=== PATIENT | male | born 1955 | race American Indian/Alaskan Native ===

== ENCOUNTER 2020-09-12 13:18 | Emergency (ER) | payer OTHER ==
[2020-09-12] MEDS ORDERED: HYDROcodone/ACETAMINOPHEN 5-325 MG TAB PO ONE (15:28)
[2020-09-12] MEDS ORDERED: dexAMETHasone 4 MG/ML VIAL IM ONE (15:28)
[2020-09-12] MEDS ORDERED: cloNIDine 0.1 MG TAB PO ONE (15:28)
--- NOTE | 2020-09-12 16:00 | XRay Report ---
XR foot 3+V RT INDICATION / CLINICAL INFORMATION: right foot pain and swelling. COMPARISON: None available. FINDINGS: BONES/JOINT(S): No acute fracture or subluxation. No significant degenerative changes. SOFT TISSUES: No significant abnormality. ADDITIONAL FINDINGS: None. Signer Name: Bryon Monzon MD Signed: 09/12/2020 3:56 PM Workstation Name: [id number]
--- NOTE | 2020-09-12 16:48 | Emergency Department Report ---
ED Extremity Problem HPI - General Chief complaint: Extremity Problem,Nontraumatic Stated complaint: GOUT/HBP Time Seen by Provider: 09/12/20 15:18 Source: patient Mode of arrival: Ambulatory Limitations: No Limitations - History of Present Illness Initial comments: Patient is a 65-year-old male presents emergency room complaints of right foot pain and swelling that began a week ago. He denies any fall or injury. He states that this happened once in the past approximately 2 years ago he was diagnosed with gout. He states that he saw Dr. Evangelista, podiatry at that time. He denies any red meat, beer, wine use. He states that he does eat cheese. He denies any numbness or weakness. He states he has pain with ambulation. Past medical history of hypertension, he states that he was previously on amlodipine 10 years ago but has not been on it since then. He denies any symptoms related to his blood pressure. He denies any medication allergies. Severity scale (0 -10): 4 - Related Data Previous Rx's Medication Instructions Recorded Last Taken Type Colchicine 0.6 mg PO ONCE 1 Days #3 tablet 09/12/20 Unknown Rx Prednisone [predniSONE 10 mg 10 mg PO .TAPER #1 tab.ds.pk 09/12/20 Unknown Rx (6-Day Pack, 21 Tabs)] amLODIPine 10 mg PO DAILY #30 tab 09/12/20 Unknown Rx traMADoL [Ultram 50 MG tab] 50 mg PO Q6HR PRN #12 tablet 09/12/20 Unknown Rx ED Review of Systems ROS: Stated complaint: GOUT/HBP Other details as noted in HPI Comment: All other systems reviewed and negative ED Past Medical Hx - Past Medical History Previous Medical History?: Yes Hx Hypertension: Yes Additional medical history: gout - Surgical History Past Surgical History?: No - Medications Home Medications: Home Medications Medication Instructions Recorded Confirmed Last Taken Type Colchicine 0.6 mg PO ONCE 1 Days #3 tablet 09/12/20 Unknown Rx Prednisone [predniSONE 10 mg 10 mg PO .TAPER #1 tab.ds.pk 09/12/20 Unknown Rx (6-Day Pack, 21 Tabs)] amLODIPine 10 mg PO DAILY #30 tab 09/12/20 Unknown Rx traMADoL [Ultram 50 MG tab] 50 mg PO Q6HR PRN #12 tablet 09/12/20 Unknown Rx ED Physical Exam - General Limitations: No Limitations General appearance: alert, in no apparent distress - Head Head exam: Present: atraumatic, normocephalic - Eye Eye exam: Present: normal appearance - ENT ENT exam: Present: mucous membranes moist - Respiratory Respiratory exam: Absent: respiratory distress, accessory muscle use - Extremities Exam Extremities exam: Present: other (ttp to the right dorsal foot, mild increased warmth, edema and erythema, FROM of the RLE, no significant pain with ROM, no deformity, skin is intact, neurovascularly intact) - Neurological Exam Neurological exam: Present: alert, oriented X3 - Psychiatric Psychiatric exam: Present: normal affect, normal mood - Skin Skin exam: Present: warm, dry, intact ED Course Vital Signs 09/12/20 09/12/20 09/12/20 14:53 16:11 17:21 Temperature 98.1 F Pulse Rate 50 L 82 Respiratory 20 20 Rate Blood Pressure 203/106 172/94 O2 Sat by Pulse 95 96 Oximetry ED Medical Decision Making - Lab Data Result diagrams: 09/12/20 16:36 09/12/20 16:36 Lab Results 09/12/20 09/12/20 Range/Units 16:36 16:36 WBC 9.5 (4.5-11.0) K/mm3 RBC 4.95 (3.65-5.03) M/mm3 Hgb 13.7 (11.8-15.2) gm/dl Hct 41.5 (35.5-45.6) % MCV 84 (84-94) fl MCH 28 (28-32) pg MCHC 33 (32-34) % RDW 13.5 (13.2-15.2) % Plt Count 315 (140-440) K/mm3 Lymph % (Auto) 6.5 L (13.4-35.0) % Rhea % (Auto) 8.8 H (0.0-7.3) % Eos % (Auto) 1.1 (0.0-4.3) % Baso % (Auto) 0.6 (0.0-1.8) % Lymph # (Auto) 0.6 L (1.2-5.4) K/mm3 Rhea # (Auto) 0.8 (0.0-0.8) K/mm3 Eos # (Auto) 0.1 (0.0-0.4) K/mm3 Baso # (Auto) 0.1 (0.0-0.1) K/mm3 Seg Neutrophils % 83.0 H (40.0-70.0) % Seg Neutrophils # 7.9 H (1.8-7.7) K/mm3 Sodium 137 (137-145) mmol/L Potassium 3.1 L (3.6-5.0) mmol/L Chloride 93.7 L (98-107) mmol/L Carbon Dioxide 32 H (22-30) mmol/L Anion Gap 14 mmol/L BUN 21 H (9-20) mg/dL Creatinine 1.5 H (0.8-1.3) mg/dL Estimated GFR 57 ml/min BUN/Creatinine Ratio 14 % Glucose 128 H (75-100) mg/dL Uric Acid 9.4 H (3.5-7.6) mg/dL Calcium 8.9 (8.4-10.2) mg/dL Total Bilirubin 0.70 (0.1-1.2) mg/dL AST 26 (5-40) units/L ALT 20 (7-56) units/L Alkaline Phosphatase 57 (35-129) units/L Total Protein 8.3 H (6.3-8.2) g/dL Albumin 3.3 L (3.9-5) g/dL Albumin/Globulin Ratio 0.7 % Vital Signs 09/12/20 09/12/20 09/12/20 14:53 16:11 17:21 Temperature 98.1 F Pulse Rate 50 L 82 Respiratory 20 20 Rate Blood Pressure 203/106 172/94 O2 Sat by Pulse 95 96 Oximetry - Radiology Data Radiology results: report reviewed Ordering Physician: ALVERTO FINNEGAN Date of Service: 09/12/20 Procedure(s): XR foot 3+V RT Accession Number(s): [id number] cc: ALVERTO FINNEGAN Fluoro Time In Minutes: XR foot 3+V RT INDICATION / CLINICAL INFORMATION: right foot pain and swelling. COMPARISON: None available. FINDINGS: BONES/JOINT(S): No acute fracture or subluxation. No significant degenerative changes. SOFT TISSUES: No significant abnormality. ADDITIONAL FINDINGS: None. Signer Name: Bryon Monzon MD Signed: 09/12/2020 3:56 PM Workstation Name: [id number] Transcribed By: MARIBELL Dictated By: Bryon Monzon MD Electronically Authenticated By: Bryon Monzon MD Signed Date/Time: 09/12/201555 DD/ 54 TD/TT: Print - Medical Decision Making Patient is a 65-year-old male presents emergency room complaints of right foot pain and swelling that began a week ago. He denies any fall or injury. He states that this happened once in the past approximately 2 years ago he was diagnosed with gout. He states that he saw Dr. Evangelista, podiatry at that time. He denies any red meat, beer, wine use. He states that he does eat cheese. He denies any numbness or weakness. He states he has pain with ambulation. Past medical history of hypertension, he states that he was previously on amlodipine 10 years ago but has not been on it since then. He denies any symptoms related to his blood pressure. He denies any medication allergies. Vitals with elevated blood pressure, otherwise vitals are stable, patient given 0.1 mg of clonidine and blood pressure improved. On exam:ttp to the right dorsal foot, mild increased warmth, edema and erythema, FROM of the RLE, no significant pain with ROM, no deformity, skin is intact, neurovascularly intact. XR right foot: BONES/JOINT(S): No acute fracture or subluxation. No significant degenerative changes. SOFT TISSUES: No significant abnormality. ADDITIONAL FINDINGS: None. Uric acid is elevated, symptoms are most consistent with gout. No leukocytosis. Patient does have some renal insufficiency, could be secondary to blood pressure, discussed the importance of primary care follow- up. Labs show hypokalemia, repleted with K-Dur. Discussed all results with patient answered questions. Patient given pain medication and dexamethasone IM while in the emergency department as he did not drive and symptoms significantly improved. Patient given prescription for colchicine, prednisone, tramadol, amlodipine. Advised patient Please take medication as prescribed. Increase your water intake. Eat a low-sodium/low salt diet. follow the diet for gout. Follow-up with your primary care doctor and please discuss today's findings with your primary care doctor. Keep a blood pressure log and take this to the primary care doctor. Incorporate 30 to 60 minutes of daily exercise. Return to emergency room for new or worsening symptoms. Critical care attestation.: If time is entered above; I have spent that time in minutes in the direct care of this critically ill patient, excluding procedure time. ED Disposition Clinical Impression: Hypertensive urgency, Renal insufficiency, Hypokalemia Acute gout Qualifiers: Gout site: foot Gout etiology: unspecified cause Laterality: right Qualified Code(s): M10.9 - Gout, unspecified Disposition: DC-01 TO HOME OR SELFCARE Is pt being admited?: No Does the pt Need Aspirin: No Condition: Stable Instructions: Low-Purine Eating Plan, Low-Sodium Eating Plan, Managing Your Hypertension Additional Instructions: Please take medication as prescribed. Increase your water intake. Eat a low- sodium/low salt diet. follow the diet for gout. Follow-up with your primary care doctor and please discuss today's findings with your primary care doctor. Keep a blood pressure log and take this to the primary care doctor. Incorporate 30 to 60 minutes of daily exercise. Return to emergency room for new or worsening symptoms. Prescriptions: amLODIPine 10 mg PO DAILY #30 tab Colchicine 0.6 mg PO ONCE 1 Days #3 tablet Prednisone [predniSONE 10 mg (6-Day Pack, 21 Tabs)] 10 mg PO .TAPER #1 tab.ds.pk traMADoL [Ultram 50 MG tab] 50 mg PO Q6HR PRN #12 tablet PRN Reason: Pain , Severe (7-10) Referrals: PRIMARY CARE, [Primary Care Provider] - 2-3 Days Time of Disposition: 18:06 Print Language: SPANISH
[2020-09-12 16:57] LABS: Basophils # (Auto) 0.1 K/mm3 (0.0-0.1); Basophils % (Auto) 0.6 % (0.0-1.8); Eosinophils # (Auto) 0.1 K/mm3 (0.0-0.4); Eosinophils % (Auto) 1.1 % (0.0-4.3); Hematocrit 41.5 % (35.5-45.6); Hemoglobin 13.7 gm/dl (11.8-15.2); Lymphocytes # (Auto) 0.6 K/mm3 (1.2-5.4); Lymphocytes % (Auto) 6.5 % (13.4-35.0); Mean Corpuscular HGB Conc 33 % (32-34); Mean Corpuscular Volume 84 fl (84-94); Monocytes # (Auto) 0.8 K/mm3 (0.0-0.8); Monocytes % (Auto) 8.8 % (0.0-7.3); Platelet Count 315 K/mm3 (140-440); Red Blood Count 4.95 M/mm3 (3.65-5.03); Red Cell Distribution Width 13.5 % (13.2-15.2)
[2020-09-12 17:16] LABS: Albumin 3.3 g/dL (3.9-5); Calcium 8.9 mg/dL (8.4-10.2); Uric Acid 9.4 mg/dL (3.5-7.6)
[2020-09-12 17:22] VITALS: BP 172/94
[2020-09-12] MEDS ORDERED: POTASSIUM CHLORIDE ER 20 MEQ TAB PO ONE (17:38)
== END 2020-09-12 18:36 | disposition home or self-care (01) ==
LOC: ED 13:18
DX: M10.9 Gout, unspecified (principal); I16.0 Hypertensive urgency; N28.9 Disorder of kidney and ureter, unspecified; E87.6 Hypokalemia; I10 Essential (primary) hypertension; Z79.899 Other long term (current) drug therapy
CPT/HCPCS: 36415; 73630; 80053; 84550; 85025; 96372; 99283; J1100